=== PATIENT | female | born 1965 | race Caucasian/White ===

== ENCOUNTER 2017-10-20 05:48 | Day surgery (SDC) | payer BC ==
[2017-10-20] MEDS ORDERED: BACITRACIN 0.9 GM OINT (06:56)
[2017-10-20] MEDS ORDERED: LIDOCAINE 1% (MPF) 30 ML INJ (06:57)
[2017-10-20] MEDS ORDERED: MIDAZOLAM 1 MG/ML 2 ML INJ (07:42)
[2017-10-20] MEDS ORDERED: FENTAnyl 50 MCG/ML VIAL (07:42)
[2017-10-20] MEDS: LIDOCAINE 1%/EPI 30 ML INJ (07:50)
[2017-10-20] MEDS ORDERED: LIDOCAINE 2% (SDV) 5 ML INJ (08:06)
[2017-10-20] MEDS ORDERED: SUCCINYLCHOLINE CHLORIDE 100 MG/5 ML SYG IV (08:06)
[2017-10-20] MEDS ORDERED: PROPOFOL 20 ML (08:06)
[2017-10-20] MEDS ORDERED: ONDANSETRON 4 MG INJ (08:07)
[2017-10-20] MEDS ORDERED: HYDROmorphONE 1 MG/5 ML IV SYRINGE IV ×2 (08:30)
[2017-10-20] MEDS ORDERED: MEPERIDINE 25 MG INJ IV (08:30)
[2017-10-20] MEDS ORDERED: DIPHENHYDRAMINE 50 MG INJ IV (08:30)
[2017-10-20] MEDS ORDERED: ONDANSETRON 4 MG INJ IV (08:30)
[2017-10-20] MEDS ORDERED: FENTAnyl 50 MCG/ML VIAL IV (08:30)
== END 2017-10-20 10:01 | disposition home or self-care (01) ==
LOC: SDS 05:48
DX: K09.0 Developmental odontogenic cysts (principal); E78.5 Hyperlipidemia, unspecified; I10 Essential (primary) hypertension; E66.9 Obesity, unspecified; Z68.26 Body mass index [BMI] 26.0-26.9, adult
CPT/HCPCS: 11100; 87070; 87075; 88307